=== PATIENT | male | born 1950 | race Caucasian/White ===

== ENCOUNTER 2022-03-11 09:58 | Emergency (ER) | payer BC ==
[~2022-03-11] VITALS: Ht 175.3 cm; Wt 99.3 kg
[2022-03-11 10:00] VITALS: BP_SYST 154
--- NOTE | 2022-03-11 10:00 | NUR ---
BROUGHT BACK TO BED #4 AND TRIAGED. REPORT GIVEN TO ROBERT
--- NOTE | 2022-03-11 10:25 | NUR ---
RECEIVED PT FROM JAMISON BEATTY. PT BIBS FOR C/O CONSTIPATION X5 WEEKS. PT STATE HE HAS ONLY HAD VERY SMALL BMs AND HAS TRIED OVER THE COUNTER RELIEF. Addendum: 03/11/22 at 1044 by [id number] PT IS AAOX4. ON R/A. ABDOMEN ROUND, DISTENDED. DENIES N/V. SKIN INTACT, PERIPHERAL PULSES NORMAL, NO EDEMA. SIDERAILS UP X2.
--- NOTE | 2022-03-11 10:35 | NUR ---
DR. MCCONNELL AT BEDSIDE TO ASSESS PT.
[2022-03-11] MEDS ORDERED: PEG4000S4 PO (11:03)
--- NOTE | 2022-03-11 11:15 | NUR ---
DR. MCCONNELL PERFORMING DIGITAL RECTAL DISIMPACTION AT THIS TIME.
[2022-03-11 11:50] VITALS: BP_SYST 142
--- NOTE | 2022-03-11 11:53 | NUR ---
Patient given written and verbal discharge instructions and verbalizes understanding. ER MD discussed with patient the results and treatment provided. Patient in stable condition. ID arm band removed. Rx of GOLYTELY given. Patient educated on pain management and to follow up with PMD. Pain Scale 0/10. Opportunity for questions provided and answered. Medication side effect fact sheet provided.
== END 2022-03-11 11:53 | disposition home or self-care (01) ==
LOC: SED 09:58
DX: K59.00 Constipation, unspecified (principal); I10 Essential (primary) hypertension; Z88.8 Allergy status to other drugs, medicaments and biological substances; Z79.899 Other long term (current) drug therapy
CPT/HCPCS: 99283

== ENCOUNTER 2022-05-14 09:47 | Inpatient (IN) | payer BC ==
[~2022-05-14] VITALS: Ht 177.8 cm; Wt 86.7 kg
[~2022-05-14 09:47] MED LIST: PEG4000S4 PO
[2022-05-14 10:08] VITALS: BP_SYST 149
--- NOTE | 2022-05-14 10:08 | NUR ---
Placed in room 08. Placed on director of market research, blood pressure machine and pulse oximeter. To gown for exam. Side rails up. Report given to LESLY NEUMANN.
[2022-05-14] MEDS ORDERED: PIPERACILLIN/TAZO 3.375 GM in NS 50 ML IV ONE (10:15)
--- NOTE | 2022-05-14 10:15 | NUR ---
ER at bedside examining patient.
[2022-05-14 10:29] LABS: BASOPHILS # (AUTO) 0.1 K/uL (0.0-0.2); BASOPHILS % (AUTO) 0.5 % (0.0-2.0); EOSINOPHILS % (AUTO) 0.3 % (0.0-4.0); HEMATOCRIT 44.6 % (36-54); HEMOGLOBIN 14.8 g/dL (14.0-18.0); LYMPHOCYTES # (AUTO) 1.1 K/uL (1.0-5.5); LYMPHOCYTES % (AUTO) 9.1 % (20.5-51.5); MEAN CORPUSCULAR HEMOGLOBIN 28 pg (27-31); MEAN CORPUSCULAR HGB CONC 33 % (32-36); MEAN CORPUSCULAR VOLUME 86 fL (79.0-98.0); MONOCYTES # (AUTO) 1.1 K/uL (0.0-1.0); MONOCYTES % (AUTO) 9.2 % (1.7-9.3); NEUTROPHILS # (AUTO) 9.5 K/uL (1.8-7.7); NEUTROPHILS % (AUTO) 80.9 % (40.0-70.0); PLATELET COUNT (AUTO) 140 K/uL (130-430); RED BLOOD CELL COUNT(AUTO) 5.21 MIL/uL (4.2-6.2); RED CELL DISTRIBUTION WIDTH 14.5 % (9.0-15.0); WHITE BLOOD COUNT (AUTO) 11.7 K/uL (4.8-10.8)
[2022-05-14 10:36] LABS: ANION GAP 8 (5-15); CALCIUM 9.5 mg/dL (8.4-11.0); CHLORIDE 95 mmol/L (98-107); CREATININE 0.84 mg/dL (0.55-1.30); GLUCOSE 107 mg/dL (70-99); UREA NITROGEN, BLOOD 14 mg/dL (8-21)
[2022-05-14 10:43] LABS: ALANINE AMINOTRANSFERASE 19 U/L (12-78); ASPARTATE AMINOTRANSFERASE 17 U/L (10-37)
--- NOTE | 2022-05-14 10:54 | NUR ---
JANIYA SWABBED AND SENT TO LAB LABELED
--- NOTE | 2022-05-14 11:00 | NUR ---
Pt presents with complaint of left lower quadrant pain for the past 1 week. Patient had outpatient CT scan with contrast performed which suggested possible diverticulosis associated with abscess. He was recommended to go to the emergency room for further evaluation and treatment. Patient admits to severe left lower quadrant pain decreased p.o. intake secondary to nausea and vomiting. Symptoms are severe nothing seems to make it better provoking event appears to be acute diverticulitis
[2022-05-14] MEDS ORDERED: PIPERACILLIN/TAZOBACTAM 3.375 GM/VIAL (ZOSYN) IV ONE (11:38)
--- NOTE | 2022-05-14 13:45 | NUR ---
ER at bedside examining patient.
--- NOTE | 2022-05-14 14:08 | NUR ---
Admit bed requested Patient will be admitted to care of . Admitted to [facility] unit. Diagnosis DIVERTICULITIS AND SIGMOID COLON CANCER Inpatient (Yes or No) Y Observation (Yes or No) N Orientation concerns or request close to nursing station (Yes or No) N Covid Status NEG On vent or bipap N Isolation requirements Y Needs a sitter N From Home (Yes or if No enter name of facility) HOME Requires Dialysis (Yes or No) N Med Rec Completed (Yes of No) Y
--- NOTE | 2022-05-14 15:48 | NUR ---
ID MD DR MARIBEL HU IS AWARE OF THE CONSULT, RE: DIVERTICULITIS.
--- NOTE | 2022-05-14 15:48 | NUR ---
GI CONSULT DR MORENO SAW THE PT IN ED.
[2022-05-14 15:58] VITALS: BP_SYST 144
[2022-05-14] MEDS: KCL 10 mEq in D5/0.45NS 1000mL 1,000 ML IV SCH (17:52)
[2022-05-14] MEDS: PIPERACILLIN/TAZO 3.375 GM in NS 50 ML IV SCH ×2 (18:09→23:12)
--- NOTE | 2022-05-14 19:35 | NUR ---
Patient will be admitted to care of [facility]. Belongings list completed. Complete and up to date summary report printed. SBAR report to RN via phone with opportunity for questions.
[2022-05-14 19:40] VITALS: BP_SYST 145
--- NOTE | 2022-05-14 19:40 | NUR ---
PM ASSESSMENT; -Pt is a/ox4, resting in bed and eating yogurt. Pt denies any chest pain,pain,sob,or any acute distress. IV site patent no s/s any infiltration noted. IVF infusing well. Discussed poc, all safety measures, pt verbalized understanding. Pt is able to ambulate with steady gaits. Urinal is at bedside. Pt preferred to use bathroom. Side rails x2, call light w/in reach. Cont to monitor pt.
[2022-05-15 01:35] VITALS: BP_SYST 119
--- NOTE | 2022-05-15 01:35 | NUR ---
ROUNDS; -Pt just returned from bathroom to bed safely with steady gaits. Pt denies any chest pain,pain,sob,or any acute distress. IV site patent no s/s any infiltration noted. Urinal is at bedside. Pt preferred to use bathroom instead urinal. Side rails x2, call light w/in reach. Cont to monitor pt.
[2022-05-15] MEDS: KCL 10 mEq in D5/0.45NS 1000mL 1,000 ML IV SCH (06:40)
[2022-05-15] MEDS: PIPERACILLIN/TAZO 3.375 GM in NS 50 ML IV SCH ×2 (06:40→14:08)
--- NOTE | 2022-05-15 06:46 | NUR ---
CLOSING NOTES; -Pt is resting in bed comfortably. NO s/s any acute distress noted. IV site patent drsg cdi. IVF infusing well. Fall precaution in place. Side rails x2, call light w/in reach. Pt's condition stable. will endorse to next nurse to cont care.
--- NOTE | 2022-05-15 08:00 | NUR ---
Initial Notes Patient is AOx4. Ambulatory with a steady gait. Breathing is even and nonlabored, on room air. No ss of distress noted. Iv patent. 20 G R AC . Flushes well. Patient denies pain. Vital signs obtained, as documented. Patient is eating. Bed is locked, alarm on and at lowest position.
[2022-05-15 08:15] LABS: BASOPHILS # (AUTO) 0.1 K/uL (0.0-0.2); BASOPHILS % (AUTO) 0.6 % (0.0-2.0); EOSINOPHILS # (AUTO) 0.1 K/uL (0.0-0.4); EOSINOPHILS % (AUTO) 0.9 % (0.0-4.0); HEMATOCRIT 38.5 % (36-54); LYMPHOCYTES # (AUTO) 1.2 K/uL (1.0-5.5); MEAN CORPUSCULAR HEMOGLOBIN 29 pg (27-31); MEAN CORPUSCULAR HGB CONC 34 % (32-36); MEAN CORPUSCULAR VOLUME 86 fL (79.0-98.0); MONOCYTES # (AUTO) 1.1 K/uL (0.0-1.0); MONOCYTES % (AUTO) 11.5 % (1.7-9.3); NEUTROPHILS # (AUTO) 7.2 K/uL (1.8-7.7); PLATELET COUNT (AUTO) 111 K/uL (130-430); RED BLOOD CELL COUNT(AUTO) 4.48 MIL/uL (4.2-6.2); RED CELL DISTRIBUTION WIDTH 14.3 % (9.0-15.0); WHITE BLOOD COUNT (AUTO) 9.6 K/uL (4.8-10.8)
[2022-05-15 08:53] LABS: ALANINE AMINOTRANSFERASE 17 U/L (12-78); ALBUMIN 2.4 g/dL (3.4-4.8); ANION GAP 3 (5-15); ASPARTATE AMINOTRANSFERASE 17 U/L (10-37); CALCIUM 9.1 mg/dL (8.4-11.0); CHLORIDE 102 mmol/L (98-107); CREATININE 0.77 mg/dL (0.55-1.30); GLUCOSE 122 mg/dL (70-99); TOTAL BILIRUBIN 0.8 mg/dL (0.0-1.0); UREA NITROGEN, BLOOD 9 mg/dL (8-21)
[2022-05-15 12:00] VITALS: BP_SYST 149
--- NOTE | 2022-05-15 12:00 | NUR ---
notes Patient stable. No distress noted. Denies pain. IV patent. Safety precautions in place and call light within reach.
[2022-05-15] MEDS ORDERED: LEVO750T64 PO (12:36)
[2022-05-15] MEDS ORDERED: METR-343 PO (12:36)
[2022-05-15 14:36] LABS: BASOPHILS % (AUTO) 0.4 % (0.0-2.0); EOSINOPHILS # (AUTO) 0.1 K/uL (0.0-0.4); EOSINOPHILS % (AUTO) 0.6 % (0.0-4.0); HEMATOCRIT 38.9 % (36-54); HEMOGLOBIN 12.9 g/dL (14.0-18.0); LYMPHOCYTES % (AUTO) 8.9 % (20.5-51.5); MEAN CORPUSCULAR HEMOGLOBIN 28 pg (27-31); MEAN CORPUSCULAR HGB CONC 33 % (32-36); MEAN CORPUSCULAR VOLUME 86 fL (79.0-98.0); NEUTROPHILS # (AUTO) 9.5 K/uL (1.8-7.7); NEUTROPHILS % (AUTO) 81.1 % (40.0-70.0); PLATELET COUNT (AUTO) 112 K/uL (130-430); RED BLOOD CELL COUNT(AUTO) 4.54 MIL/uL (4.2-6.2); RED CELL DISTRIBUTION WIDTH 14.5 % (9.0-15.0); WHITE BLOOD COUNT (AUTO) 11.7 K/uL (4.8-10.8)
[2022-05-15 15:25] VITALS: BP_SYST 149
[2022-05-15 15:59] VITALS: BP_SYST 148
--- NOTE | 2022-05-15 16:15 | NUR ---
D/C Patient Patient given medication reconciliation form and D/C instructions. Exit Care provided. Patient verbalized understanding. MD discussed with patient the results and treatment provided. Ambulatory with steady gait for discharge to home. Patient in stable condition, ID band removed. IV catheter removed, intact and dressing applied, no active bleeding. Rx of medication given. Patient educated on pain management. All belongings sent with patient.
== END 2022-05-15 16:15 | disposition home or self-care (01) | DRG 375 ==
LOC: SED 09:47 → SMU 13:51
PROVIDERS: ADMIT Specialist; ATTEND Specialist
DX: C18.7 Malignant neoplasm of sigmoid colon (principal); E44.0 Moderate protein-calorie malnutrition; K57.32 Diverticulitis of large intestine without perforation or abscess without bleeding; I10 Essential (primary) hypertension; Z20.822 Contact with and (suspected) exposure to COVID-19; E66.9 Obesity, unspecified; Z88.8 Allergy status to other drugs, medicaments and biological substances; Z85.038 Personal history of other malignant neoplasm of large intestine; Z68.27 Body mass index [BMI] 27.0-27.9, adult; Z86.2 Personal history of diseases of the blood and blood-forming organs and certain disorders involving the immune mechanism
CPT/HCPCS: 36415; 71045; 76376; 80053; 83605; 84484; 85025; 87040; 99285; J2543